=== PATIENT | male | born 1965 | race African-American/Black ===

== ENCOUNTER 2017-09-19 09:16 | Emergency (ER) | payer OTHER ==
[2017-09-19] MEDS: IBUPROFEN 800 MG TAB PO (10:06)
[2017-09-19] MEDS: ACETAMINOPHEN 650MG/20.3ML CUP PO (10:07)
[2017-09-19] MEDS: LIDOCAINE 1% (MDV) 10 ML INJ INJ (10:07)
== END 2017-09-19 11:54 | disposition home or self-care (01) ==
LOC: FTE 09:16
DX: S01.111A Laceration without foreign body of right eyelid and periocular area, initial encounter (principal); S80.811A Abrasion, right lower leg, initial encounter; S80.812A Abrasion, left lower leg, initial encounter; R06.02 Shortness of breath; V29.49XA Motorcycle driver injured in collision with other motor vehicles in traffic accident, initial encounter
CPT/HCPCS: 12011; 71046; 73130-RT; 99284-25